=== PATIENT | male | born 1995 | race Caucasian/White ===

== ENCOUNTER 2021-05-30 16:51 | Emergency (ER) | payer OTHER, SELFPAY ==
[2021-05-30 17:14] VITALS: BP 123/83; PULSE 101; TEMP 37.8; O2SAT 99
--- NOTE | 2021-05-30 17:15 | RT.EKG_ITS ---
APPROVED REPORT Exam: Resting ECG Reason for Exam: Tick bite, R/O Block Patient Location: E HR:87 bpm ECG Measurements Heart Rate 87 AXIS NM 166 P 62 QRSd 95 QRS 87 QT 335 T 41 QTc 405 Conclusion Sinus rhythm...normal P axis, V-rate 60- 99. No STEMI. I have reviewed and interpreted ECG and agree with software generated interpretation.
--- NOTE | 2021-05-30 17:26 | ED.GENADUL_ITS ---
Discharge Plan Disposition Patient Disposition: HOME Condition: Stable Discharge Details Clinical Impression: Tick bite Primary Care Provider: Unknown,Unknown ED Provider: Denise Joel Home Meds and New Rx's Prescriptions: New doxycycline hyclate 100 mg capsule 100 mg PO BID 10 Days Qty: 20 RF: 0 Discharge Instructions Instructions: Lyme Disease (ED), Tick Bite (ED) Additional Instructions: At this time your labs are largely within normal limits. The Lyme panel is st ill pending. We will place you on doxycycline twice daily for at least 10 days please make sure to take all the antibiotic. Please follow-up with your primary care provider to discuss the Lyme panel results and further care. Follow up with primary care provider in 3-5 days. Return to ED sooner if any worsening or concerns. Increase oral fluids. Please take Tylenol or Ibuprofen with food every 4-6 hours as needed for pain and swelling. Discharge Data Discharge Date/Time-TO BE ENTERED AT DEPARTURE: 05/30/21 19:25 Medical Decision Making 25-year-old male presents to the ER with chief complaint of fever, myalgias, headache and weakness status post a tick bite 1 week ago to the scrotum. He is unsure of how long the tick was embedded for. He does report rash to his bilateral inner thighs which is starting to go away. He denies any vomiting abdominal pain or any other associated symptoms. Labs ordered including CBC, CMP, tick and Lyme panel which is pending at this time. CBC shows leukocytosis with a white blood cell count 11.64, platelets 325, no thrombocytopenia ,sodium 139 potassium 3.7 BUN/creatinine within normal limits, Patient was given doxycycline first dose here in department and prescribed 10 days 100 mg doxycycline twice daily. Given information on Lyme disease and tick bite. Instructed to follow-up with PCP and placed on the care management list for PCP follow-up within 1 week. Instructed to alternate Tylenol ibuprofen as needed for fever and to return for any concerns. This text was generated using [employer] system, please disregard any oddities of phrase or misspellings. HPI General Mode of arrival: ambulatory . Date/Time Provider Initiated Documentation: 05/30/21 17:16 . Limitations to Documentation: no limitations . Information obtained by: patient . HPI Narrative: 25-year-old male presents to the ER with chief complaint of fever, myalgias, headache and weakness status post a tick bite 1 week ago to the scrotum. He is unsure of how long the tick was embedded for. He does report rash to his bilateral inner thighs which is starting to go away. He denies any vomiting abdominal pain or any other associated symptoms. Related Data Home Medications Medication Instructions Recorded Confirmed doxycycline hyclate 100 mg PO BID 10 Days #20 cap 05/30/21 Previous Rx's Medication Instructions Recorded doxycycline hyclate 100 mg PO BID 10 Days #20 cap 05/30/21 Allergies Allergy/AdvReac Type Severity Reaction Status Date / Time No Known Allergies Allergy Unverified 05/30/21 17:19 General Stated Complaint: Fever BAILEE: 3 Review of Systems Narrative: Constitutional: Negative for weight loss, alert and oriented, well groomed, normal body habitus, appears comfortable. Positive fever, body aches HEENT: Denies trauma, blurry vision, nasal discharge, sore throat, trouble swallowing. Chest: Denies chest pain, palpitations, irregular rhythm, hypertension. Respiratory: Denies Shortness of breath, cough, hemoptysis. GI: Denies abdominal pain, nausea, vomiting, diarrhea, constipation. : Denies dysuria, hematuria, flank pain, rectal bleeding. Neuro: Denies dizziness, blurry vision, weakness, syncope, or facial numbness. Hematologic: Denies easy bruising, intolerance to heat or cold, hair loss. [facility] Social History Smoking/Tobacco Use Status: Current every day Tobacco Type: e-cigarettes Smoking risk assessment performed?: Yes Alcohol Intake: current Alcohol Intake frequency: a few times a month Alcohol type: beer Drug use: Occasionally Substance use type: marijuana Do you feel safe at home: Yes Do you feel safe in your relationship?: Yes Exam Narrative Exam Narrative: Constitutional: Alert and oriented x3. Appears stated age. Normal body habitus. Head: Normocephalic, no trauma. Eyes: Pupils PERRLA, Red reflex noted, EOM's intact. Eyelids symmetrical without lesions, discharge, or swelling. ENT: Bilateral TM's WNL, External ear normal to inspection, no mastoid TTP, swelling, or erythema, Nasal turbinates WNL, no nasal discharge. Normal denti tion, Posterior pharynx WNL, no exudate. Chest: RRR, Normal S1, S2, distal pulses intact. Resp: Lungs clear to auscultation bilaterally, no wheezes, rales, or rhonchi. Musculoskeletal: Normal gait, 5/5 strength to all four extremities. Skin: Large circular bull's-eye rash noted to the bilateral inner thighs. Is not raised. capillary refill less than 2 sec. Neurologic: Cranial nerves II-XII intact. Alert and oriented x 3. DTR's intact. Hematologic/Lymphatic: No ecchymosis, no lymphadenopathy. Extrem Upper/lower leg/hip images: 1. Faint circular bull's-eye rash. No urticaria 2. Faint circular erythemic bull's-eye rash. No urticaria Course Vital Signs Vital signs: Vital Signs Temperature 37.8 C H 05/30/21 17:14 Pulse 101 H 05/30/21 17:14 Blood Pressure 123/83 05/30/21 17:14 Pulse Oximetry 99 05/30/21 17:14 Temperature 37.8 C H 05/30/21 17:14 Temperature Source Temporal Artery Scan 05/30/21 17:14 Pulse 101 H 05/30/21 17:14 Respiratory Effort Non-Labored 05/30/21 17:18 Blood Pressure 123/83 05/30/21 17:14 Blood Pressure Position Sitting 05/30/21 17:14 Pulse Oximetry 99 05/30/21 17:14 Oxygen Delivery Method Room Air 05/30/21 17:14 Oxygen Flow Rate 0 05/30/21 17:14 Pain Level 7 05/30/21 17:14
[2021-05-30] MEDS: Doxycycline Hyclate 100 MG, 2 CAPS/BTL PO (18:12)
[2021-05-30] MEDS: Doxycycline Hyclate 100 MG CAP PO (18:12)
[2021-05-30 18:21] LABS: Abs Immature Grans 0.07 10^3/uL (0.0-0.06); Absolute Basophil Count 0.02 10^3/uL (0.0-0.2); Absolute Eosinophil Count 0.08 10^3/uL (0.0-0.7); Absolute Lymphocyte Count 1.21 10^3/uL (1.2-3.4); Absolute Monocyte Count 0.72 10^3/uL (0.1-0.8); Basophils % 0.2; Eosinophils % 0.7; HCT 40.6 % (40.0-50.0); HGB 13.6 g/dL (13.5-17.5); Immature Grans % 0.6; Lymphocytes % 10.4; MCH 31.1 pg (27.0-33.0); MCHC 33.5 % (32.0-36.0); MCV 92.7 fL (80-95); Monocytes % 6.2; Neutrophils % 81.9; Nucleated RBC 0 %; Platelet Count 325 10^3/uL (130-400); RBC 4.38 10^6/uL (4.36-5.78); RDW 11.7 % (11.8-14.1); RDW-SD 39.8 fL; WBC 11.64 10^3/uL (4.4-10.8)
[2021-05-30 18:22] LABS: Absolute Neutrophil Count 9.53 10^3/uL (1.2-6.7)
[2021-05-30 18:35] LABS: ALT 27 U/L (16-63); AST 21 U/L (15-37); Albumin 3.2 g/dL (3.4-5.0); Alkaline Phosphatase 61 U/L (46-116); Anion Gap 9.2 mmol/L (3-11); BUN 15 mg/dL (7-18); Bilirubin, Total 0.5 mg/dL (0.2-1.0); CO2 27.8 mmol/L (21.0-32.0); Calcium 9.1 mg/dL (8.5-10.1); Chloride 102 mmol/L (98-107); Glucose 92 mg/dL (74-106); Potassium 3.7 mmol/L (3.5-5.1); Sodium 139 mmol/L (136-145); Total Protein 7.5 g/dL (6.4-8.2)
--- NOTE | 2021-05-30 19:11 | NUR.NOTE ---
Referral to Care Management to establish pcp within a week, tick bite with fever.Nursing Note:
[2021-05-30 19:26] VITALS: BP 121/67; PULSE 86; RESP 16; TEMP 37.3; O2SAT 100
[2021-06-01 15:11] LABS: Lyme Ab w Rflx to Lyme Confirm Positive (Negative)
[2021-06-02 18:40] LABS: Anaplasma phagocytophilum Negative (Negative); B. miyamotoi PCR Negative (Negative); Babesia divergens/MO-1 Negative (Negative); Babesia duncani Negative (Negative); Babesia microti Negative (Negative); Ehrlichia chaffeensis Negative (Negative); Ehrlichia ewingii/canis Negative (Negative); Ehrlichia muris eauclairensis Negative (Negative)
[2021-07-09 10:49] LABS: Lyme IgG Ab Positive (Negative); Lyme IgM Ab Positive (Negative)
== END 2021-05-30 19:25 | disposition home or self-care (01) ==
PROVIDERS: Emergency Provider Registered Nurse Emergency
DX: S30.863A Insect bite (nonvenomous) of scrotum and testes, initial encounter (principal); W57.XXXA Bitten or stung by nonvenomous insect and other nonvenomous arthropods, initial encounter; A69.20 Lyme disease, unspecified; R21 Rash and other nonspecific skin eruption
CPT/HCPCS: 36415; 80053; 86617; 87798; 93005; 99284; 85025; 86618; 93010